=== PATIENT | female | born 1980 ===

== ENCOUNTER 2022-03-12 05:28 | Inpatient (IN) ==
--- NOTE | 2022-03-07 10:08 | Anesthesiology Consultation ---
Date of Service March 07, 2022 Assessment & Plan (1) Encounter for pre-operative examination: - check BSG am DOS. - COVID screening: Per integrated logistics programs director on 03/07/2022: Travel screen negative, no known COVID-19 positive contacts or current COVID-19 related symptoms in past 2 weeks. To surgeon's discretion if preop COVID testing is needed. Chart Review Chart Review: Acceptable Risk for Surgery and Patient NOT seen in Pre Admission Testing History Surgery Operation Date: 03/12/22 07:30 Proposed Procedures p Repeat Section - Krishan Delgado MD Height/Weight Height: 5 ft 8 in Weight: 107.501 kg Allergies Allergy/AdvReac Type Severity Reaction Status Date / Time No Known Allergies Allergy Verified 03/07/22 09:40 Medications Home Medications Medication Instructions Recorded Confirmed Last Taken [id number] 3-fat com #1 27 1 cap PO QAM 03/07/22 03/07/22 Unknown mg-1 mg-300 mg capsule cyanocobalamin (vitamin B-12) 50 50 mcg PO QAM 03/07/22 03/07/22 Unknown mcg tablet (Vitamin B-12) insulin detemir U-100 100 unit/mL 35 unit subcut HS 03/07/22 03/07/22 Unknown subcutaneous solution (Levemir U-100 Insulin) iron 18 mg tablet 18 mg PO QAM 03/07/22 03/07/22 Unknown Past Medical History Medical History Anxiety hx- no meds Gestational diabetes History of COVID-19 02/2021- fatigue, no hospitalization, no current issues Past Family History Family History Other No family history of adverse response to anesthesia Past Surgical History Surgical History Hx of section Hx of laparoscopy Hx of tonsillectomy Social History Smoking Status: Never smoker Do You Dip or Chew Tobacco: No Hx Alcohol Use: No Hx Substance Use: No substance use type: does not use Testing Laboratory Results 01/21/2022 WBC: 7.2 H/H: PLATELETS: 236
[2022-03-12] MEDS ORDERED: ceFAZolin 2000MG 2,000 MG/15 ML SYR IV SCH (06:00)
[2022-03-12] MEDS ORDERED: CITRIC ACID/SODIUM CITRATE 15 ML UDC PO SCH (06:00)
[2022-03-12] MEDS ORDERED: LACTATED RINGER'S 1,000 ML IV SCH ×2 (06:00→09:45)
[2022-03-12 06:31] LABS: Basophils # (auto) 0.05 K/uL (0-0.2); Basophils % (auto) 0.6 %; Eosinophils # (auto) 0.17 K/uL (0-0.50); Eosinophils % (auto) 1.9 %; Hematocrit (blood only) 30.7 % (34.1-44.9); Hemoglobin 10.7 g/dl (12.0-16.0); Immature Granulocytes # (auto) 0.02 K/uL (0.00-0.02); Immature Granulocytes % (auto) 0.2 %; Lymphocytes # (auto) 2.26 K/uL (1.2-3.4); Lymphocytes % (auto) 25.4 %; Mean Corpuscular Hemoglobin 32.7 pg (25.0-34.0); Mean Corpuscular Hgb Conc 34.9 g/dL (32.0-36.0); Mean Corpuscular Volume 93.9 fL (80.0-100.0); Mean Platelet Volume 9.8 fL (9.4-12.3); Monocytes # (auto) 0.77 K/uL (0.24-0.82); Monocytes % (auto) 8.7 %; Neutrophils # (auto) 5.63 K/uL (1.4-6.5); Neutrophils % (auto) 63.2 %; Platelet Count 198 K/uL (130-400); RDW Coefficient of Variation 13.2 % (11.5-14.5); RDW Standard Deviation 45.1 fL (36.4-46.3); Red Blood Count 3.27 M/uL (3.93-5.22)
[2022-03-12] MEDS ORDERED: fentaNYL citrate 100 MCG/2 ML VIAL ONE (06:43)
[2022-03-12] MEDS ORDERED: MoRPHine SULFATE PF 1 MG/ML 10 ML AMP/VIAL ONE (06:43)
[2022-03-12] MEDS ORDERED: OXYTOCIN 10 UNITS/ML 10ML VIAL ONE (06:43)
[2022-03-12] MEDS ORDERED: SODIUM CHLORIDE 0.9% 250 ML IV PRN (06:46)
[2022-03-12] MEDS ORDERED: NALOXONE HCL 0.08 MG in SYRINGE 1.8 ML IV PRN (07:04)
[2022-03-12] MEDS ORDERED: diphenhydrAMINE 50 MG/ML VIAL IV PRN (07:04)
[2022-03-12] MEDS ORDERED: NALBUPHINE HCL INJ 10 MG/ML AMP IV PRN (07:04)
[2022-03-12] MEDS ORDERED: NALOXONE HCL 0.4 MG/1 ML VIAL/CARP IV PRN (07:04)
[2022-03-12] MEDS ORDERED: HYDROmorphone INJ 0.5 MG/0.5 ML SYR IV PRN (07:04)
[2022-03-12] MEDS ORDERED: MoRPHine SULFATE PF 1 MG/ML 10 ML AMP/VIAL INT SPINAL ONE (07:04)
[2022-03-12] MEDS ORDERED: ePHEDrine sulfate 50 MG/ML AMP IV PRN (07:04)
[2022-03-12] MEDS ORDERED: ONDANSETRON INJ 2 MG/ML 2 ML VIAL IV PRN ×2 (07:04→09:34)
[2022-03-12] MEDS ORDERED: NALOXONE HCL 1 MG in SODIUM CHLORIDE 0.9% 1000ML 1,000 ML IV PRN (07:04)
[2022-03-12] MEDS ORDERED: LACTATED RINGER'S 500 ML IV PRN (07:04)
[2022-03-12] MEDS ORDERED: SODIUM CHLORIDE 0.9% 1000ML 1,000 ML IV SCH (07:15)
[2022-03-12] MEDS ORDERED: DC INTRASPINAL MORPHINE SCH (07:15)
[2022-03-12] MEDS ORDERED: NO NARCOTICS OR SEDATIVES SCH (07:15)
--- NOTE | 2022-03-12 07:44 | History & Physical Bridge Note ---
Date of Service March 12, 2022 History & Physical Bridge Note I have examined the patient, reviewed the History & Physical and in the interval since the performance of the History & Physical I have noted the following changes of clinical significance: no changes noted
[2022-03-12] MEDS ORDERED: PHENYLEPHRINE 100MCG/ML 5ML SYR ONE (08:36)
[2022-03-12] MEDS ORDERED: ePHEDrine sulfate 50 MG/ML SYR ONE (08:36)
[2022-03-12] MEDS ORDERED: METHYLERGONOVINE MALEATE 0.2 MG/ML AMP ONE (08:48)
[2022-03-12] MEDS ORDERED: ONDANSETRON INJ 2 MG/ML 2 ML VIAL ONE (08:48)
[2022-03-12] MEDS ORDERED: ARISTA ABSORBABLE HEMOSTAT 3GM TOP ONE (08:59)
[2022-03-12] MEDS ORDERED: miSOPROStoL 200 MCG TAB ONE (09:22)
[2022-03-12] MEDS ORDERED: BENZOCAINE 20% AER SPR 82.5 GM CAN EXT PRN (09:34)
[2022-03-12] MEDS ORDERED: HYDROCORTISONE ACETATE 25 MG SUPP PR PRN (09:34)
[2022-03-12] MEDS ORDERED: SENNA 8.6 MG TAB PO PRN (09:34)
[2022-03-12] MEDS ORDERED: MAGNESIUM HYDROXIDE SUSP 30 ML UDC PO PRN (09:34)
[2022-03-12] MEDS ORDERED: DIPHTHERIA/TETANUS/PERTUSSIS 0.5 ML SYR/VIAL IM ONE (09:34)
[2022-03-12] MEDS ORDERED: OXYTOCIN 20 UNITS in LACTATED RINGER'S 1,000 ML IV SCH (09:45)
--- NOTE | 2022-03-12 10:02 | Anesthesiology Progress Note ---
Date of Service March 12, 2022 Anesthesia Post Procedure Vital Signs Vital Signs: Temp Pulse Resp BP Pulse Ox 03/12/22 09:51 14 03/12/22 09:42 14 03/12/22 09:29 36.4 C L 20 03/12/22 06:05 36.9 C 18 03/12/22 09:56 80 96 03/12/22 09:51 95 03/12/22 09:51 83 03/12/22 09:51 78 126/67 03/12/22 09:46 80 94 03/12/22 09:44 81 93 03/12/22 09:42 84 126/60 03/12/22 09:41 90 96 03/12/22 09:37 81 87 L 03/12/22 09:36 80 98 03/12/22 09:31 82 98 03/12/22 09:30 81 123/68 03/12/22 07:30 20 03/12/22 07:30 36.6 C 20 03/12/22 07:11 69 133/83 03/12/22 05:44 91 H 136/69 Transfer of Care Handoff Completed per policy Notes Mental Status: alert / awake / arousable and participated in evaluation Patient Amnestic to Procedure: Yes Nausea / Vomiting: adequately controlled Pain: adequately controlled Airway Patency, RR, SpO2: stable & adequate BP & HR: stable & adequate Hydration State: stable & adequate Neuraxial Anesthesia: was administered and sensory block is resolving Anesthetic Complications: no major complications apparent and Pt Satisfied with anesthetic care
[2022-03-12] MEDS ORDERED: miSOPROStoL 200 MCG TAB PR ONE (11:00)
--- NOTE | 2022-03-12 11:14 | Operative Report (OR) ---
DATE OF PROCEDURE: 03/12/2022. INDICATION FOR SURGERY: This is a 41-year-old , prior section, at term, wish es to have repeat . PREOPERATIVE DIAGNOSES: 1. at term. 2. Previous section, wishes to have repeat . POSTOPERATIVE DIAGNOSES: 1. at term. 2. Previous section, wishes to have repeat . SURGEON: Krishan Delgado MD DEVICE TEST ENGINEER: SYLVIA Khan. ANESTHESIA: Spinal. ESTIMATED BLOOD LOSS: 100 mL. URINE OUTPUT: 50 mL of clear urine at the end of the procedure. INTRAVENOUS FLUIDS: 500 mL. SPECIMEN: Placenta. INTRAOPERATIVE COMPLICATIONS: None. PATIENT CONDITION: Stable. DISPOSITION: Postanesthesia care unit. ATTESTATION: I performed the entire procedure. DESCRIPTION OF PROCEDURE: The patient is sent to the operating room where she was prepped and draped in normal sterile fashion in dorsal lithotomy position. Timeout was called. Pfannenstiel incision was made with a scalpel and carried down to the fascia. Fascia was incised in the midline and extend ed laterally on both sides. Kochers are used to grab the fascia superiorly and inferiorly. Fascia w as sharply dissected off the rectus abdominis muscle. Peritoneum was identified and entered sharply. Once inside the abdomen, an Ramón retractor was placed for retraction. Vesicouterine peritoneum w as sharply dissected over the lower segment of the uterus using a pickup and Metzenbaum scissors. A transverse incision was made on the ____ of the uterus and extended laterally on both sides. was delivered and handed over to the waiting pediatric team. Infant's weight and Apgars are in the p ediatric record. Uterus was exteriorized and cleared of all clots and debris after placenta was manu ally removed. Uterus was closed in two layers using Vicryl stitch. There was good hemostasis post-r epair. Copious amount of irrigation was used to irrigate the abdomen. The uterus was returned into the abdominal cavity. Once again, hemostasis was obtained. Peritoneum was closed in a running fashi on using plain suture. Two [id number] sutures were used to approximate the rectus abdominis mus gabriella. These were loosely tied. The fascia was closed in a running fashion using Vicryl stitch. Subc utaneous space was reapproximated using plain suture and the skin was closed with vandana. All instruments were removed from the abdomen including sponges, needles, and retractors and accounte d for x2. The patient is sent to recovery in stable condition. FINDINGS: Uterus, tubes, and adnexa appeared grossly normal. Infant was in cephalic presentation. Placenta appeared grossly normal as well. Rest of the abdominopelvic exam was unremarkable. Job ID: [id number]
[2022-03-12] MEDS: KETOROLAC 30 MG/ML VIAL IV PRN ×2 (11:50→23:57)
[2022-03-12] MEDS: SIMETHICONE 80 MG CHEW PO SCH ×3 (13:05→20:25)
[2022-03-12] MEDS: DOCUSATE SODIUM 100 MG CAP PO SCH (20:25)
[2022-03-13] MEDS ORDERED: diphenhydrAMINE Capsule 25 MG CAP PO PRN (01:05)
[2022-03-13] MEDS ORDERED: diphenhydrAMINE 50 MG/ML VIAL IV PRN (01:05)
[2022-03-13] MEDS ORDERED: PROMETHAZINE HCL 25 MG in SODIUM CHLORIDE 0.9% 50 ML IV PRN (01:05)
[2022-03-13 06:52] LABS: Basophils # (auto) 0.03 K/uL (0-0.2); Basophils % (auto) 0.3 %; Eosinophils # (auto) 0.06 K/uL (0-0.50); Eosinophils % (auto) 0.6 %; Hematocrit (blood only) 30.8 % (34.1-44.9); Hemoglobin 10.6 g/dl (12.0-16.0); Immature Granulocytes # (auto) 0.03 K/uL (0.00-0.02); Immature Granulocytes % (auto) 0.3 %; Lymphocytes # (auto) 1.29 K/uL (1.2-3.4); Lymphocytes % (auto) 13.5 %; Mean Corpuscular Hemoglobin 32.8 pg (25.0-34.0); Mean Corpuscular Hgb Conc 34.4 g/dL (32.0-36.0); Mean Corpuscular Volume 95.4 fL (80.0-100.0); Mean Platelet Volume 9.3 fL (9.4-12.3); Monocytes # (auto) 0.71 K/uL (0.24-0.82); Monocytes % (auto) 7.4 %; Neutrophils # (auto) 7.46 K/uL (1.4-6.5); Neutrophils % (auto) 77.9 %; Platelet Count 182 K/uL (130-400); RDW Coefficient of Variation 13.3 % (11.5-14.5); RDW Standard Deviation 47.1 fL (36.4-46.3); Red Blood Count 3.23 M/uL (3.93-5.22); White Blood Count 9.58 K/ul (4.8-10.8)
[2022-03-13] MEDS: PRENATAL VITAMIN 1 TAB PO SCH (09:34)
[2022-03-13] MEDS: DOCUSATE SODIUM 100 MG CAP PO SCH ×2 (09:34→20:35)
[2022-03-13] MEDS: SIMETHICONE 80 MG CHEW PO SCH ×4 (09:34→20:35)
[2022-03-13] MEDS: FERROUS SULFATE 325 MG TAB PO SCH (09:34)
--- NOTE | 2022-03-13 11:20 | Obstetrical Progress Note ---
Date of Service March 13, 2022 Subjective Ambulation: ambulating normally Voiding: no voiding problems Passing Gas:: Yes Diet Tolerance:: regular diet Feeding Type:: breast feeding Current Pain Level(1-10): 0 doing well Physical Exam Constitutional WD/WN, vitals as above Gastrointestinal (Abdomen) Inspection/Auscultation: abdomen normal to inspection and + abdominal surgical incision incision c/d/i. Fundus firm below U Musculoskeletal Extremities: extremities normal to inspection Skin no rashes, warm and dry Neurologic patellar DTR's 2+ bilat, sensation intact Psychiatric A+Ox3, euthymic affect Results & Data ([facility]) Vital Signs (Past 12 Hours) Vital Signs Temp Pulse Resp BP Pulse Ox Pulse Ox O2 Del Method 03/13/22 07:27 36.9 C 83 18 114/73 93 Room Air 03/13/22 04:04 36.7 C 83 16 107/22 L 97 Room Air 03/13/22 01:04 16 97 03/13/22 01:04 97 03/13/22 00:09 16 98 03/12/22 23:48 16 97 03/12/22 23:48 36.9 C 69 16 114/78 97 Room Air O2 Del Method 03/13/22 07:27 03/13/22 04:04 03/13/22 01:04 03/13/22 01:04 Room Air 03/13/22 00:09 03/12/22 23:48 03/12/22 23:48 Laboratory Results 03/12/22 03/12/22 03/12/22 06:11 06:13 06:13 WBC 8.90 RBC 3.27 L Hgb 10.7 L Hct 30.7 L MCV 93.9 MCH 32.7 MCHC 34.9 RDW Std Deviation 45.1 RDW Coeff of Mary Ann 13.2 Plt Count 198 MPV 9.8 Immature Gran % (Auto) 0.2 Neut % (Auto) 63.2 Lymph % (Auto) 25.4 [place] % (Auto) 8.7 Eos % (Auto) 1.9 Baso % (Auto) 0.6 Neut # (Auto) 5.63 Lymph # (Auto) 2.26 [place] # (Auto) 0.77 Eos # (Auto) 0.17 Baso # (Auto) 0.05 Immature Gran # (Auto) 0.02 POC Glucose 95 SARS-CoV-2, RNA, NAAT Blood Type O Negative Antibody Screen POSITIVE A Antibody Identification Anti-D due to RhIg Antibody ID Comment Crossmatch See Detail 03/12/22 03/13/22 Unknown 06:41 WBC 9.58 RBC 3.23 L Hgb 10.6 L Hct 30.8 L MCV 95.4 MCH 32.8 MCHC 34.4 RDW Std Deviation 47.1 H RDW Coeff of Mary Ann 13.3 Plt Count 182 MPV 9.3 L Immature Gran % (Auto) 0.3 Neut % (Auto) 77.9 Lymph % (Auto) 13.5 [place] % (Auto) 7.4 Eos % (Auto) 0.6 Baso % (Auto) 0.3 Neut # (Auto) 7.46 H Lymph # (Auto) 1.29 [place] # (Auto) 0.71 Eos # (Auto) 0.06 Baso # (Auto) 0.03 Immature Gran # (Auto) 0.03 H POC Glucose SARS-CoV-2, RNA, NAAT NEGATIVE Blood Type Antibody Screen Antibody Identification Antibody ID Comment Crossmatch
[2022-03-13] MEDS: IBUPROFEN 600 MG TAB PO PRN ×3 (11:22→20:34)
[2022-03-13] MEDS: oxyCODONE/ACETAMINOPHEN 5mg/325mg TAB PO PRN ×3 (11:23→20:35)
[2022-03-13] MEDS ORDERED: bisacodyL 5 MG TABEC PO SCH (20:00)
[2022-03-14] MEDS: IBUPROFEN 600 MG TAB PO PRN ×3 (01:25→10:28)
[2022-03-14] MEDS: oxyCODONE/ACETAMINOPHEN 5mg/325mg TAB PO PRN ×3 (01:26→10:27)
[2022-03-14 06:23] LABS: Hematocrit (blood only) 26.7 % (34.1-44.9); Hemoglobin 9.2 g/dl (12.0-16.0)
[2022-03-14] MEDS: PRENATAL VITAMIN 1 TAB PO SCH (08:04)
[2022-03-14] MEDS: SIMETHICONE 80 MG CHEW PO SCH (08:04)
[2022-03-14] MEDS: DOCUSATE SODIUM 100 MG CAP PO SCH (08:04)
[2022-03-14] MEDS: FERROUS SULFATE 325 MG TAB PO SCH (08:06)
[2022-03-14] MEDS ORDERED: bisacodyL 10 MG SUPP PR PRN (09:34)
--- NOTE | 2022-03-14 10:06 | Obstetrical Progress Note ---
Date of Service March 14, 2022 Subjective Ambulation: ambulating normally Voiding: no voiding problems Passing Gas:: Yes Diet Tolerance:: regular diet Lochia:: Small Feeding Type:: breast feeding Current Pain Level(1-10): 0 doing well. wants to go home today Physical Exam Constitutional WD/WN, vitals as above Gastrointestinal (Abdomen) normal bowel sounds, soft, nontender, no hepatosplenomegaly Inspection/Auscultation: abdomen normal to inspection and + abdominal surgical incision incision c/d/i Musculoskeletal Extremities: extremities normal to inspection Skin no rashes, warm and dry Neurologic patellar DTR's 2+ bilat, sensation intact Psychiatric A+Ox3, euthymic affect Results & Data ([facility]) Vital Signs (Past 12 Hours) Vital Signs Temp Pulse Resp BP Pulse Ox O2 Del Method 03/14/22 07:35 36.6 C 64 16 124/76 98 Room Air 03/14/22 00:15 36.7 C 67 18 121/73 99 Room Air Laboratory Results 03/12/22 03/12/22 03/12/22 06:11 06:13 06:13 WBC 8.90 RBC 3.27 L Hgb 10.7 L Hct 30.7 L MCV 93.9 MCH 32.7 MCHC 34.9 RDW Std Deviation 45.1 RDW Coeff of Mary Ann 13.2 Plt Count 198 MPV 9.8 Immature Gran % (Auto) 0.2 Neut % (Auto) 63.2 Lymph % (Auto) 25.4 [place] % (Auto) 8.7 Eos % (Auto) 1.9 Baso % (Auto) 0.6 Neut # (Auto) 5.63 Lymph # (Auto) 2.26 [place] # (Auto) 0.77 Eos # (Auto) 0.17 Baso # (Auto) 0.05 Immature Gran # (Auto) 0.02 POC Glucose 95 SARS-CoV-2, RNA, NAAT Blood Type O Negative Antibody Screen POSITIVE A Antibody Identification Anti-D due to RhIg Antibody ID Comment Crossmatch See Detail 03/12/22 03/13/22 03/14/22 Unknown 06:41 06:03 WBC 9.58 RBC 3.23 L Hgb 10.6 L 9.2 L Hct 30.8 L 26.7 L MCV 95.4 MCH 32.8 MCHC 34.4 RDW Std Deviation 47.1 H RDW Coeff of Mary Ann 13.3 Plt Count 182 MPV 9.3 L Immature Gran % (Auto) 0.3 Neut % (Auto) 77.9 Lymph % (Auto) 13.5 [place] % (Auto) 7.4 Eos % (Auto) 0.6 Baso % (Auto) 0.3 Neut # (Auto) 7.46 H Lymph # (Auto) 1.29 [place] # (Auto) 0.71 Eos # (Auto) 0.06 Baso # (Auto) 0.03 Immature Gran # (Auto) 0.03 H POC Glucose SARS-CoV-2, RNA, NAAT NEGATIVE Blood Type Antibody Screen Antibody Identification Antibody ID Comment Crossmatch
== END 2022-03-14 13:45 | disposition home or self-care (01) | DRG 788 ==
LOC: 4S1 05:28 → EDSTATUS 07:30 → 4E2 11:45